=== PATIENT | female | born 1955 | race Hispanic/Latino ===

== ENCOUNTER → 2018-11-29 | Outpatient (CLI) | payer OTHER, BC ==
[~2018-11-29] MED LIST: AMLODIPINE BESYL5 MG PO; HYZAAR 100-251 EACH PO; Z.0.AMBIEN10 MG PO; Z.0.BENICAR HCT 401 PO; Z.0.CYMBALTA60 MG PO; Z.0.LORAZEPAM1 MG PO
--- NOTE | 2018-11-29 10:21 | Diagnostic Imaging Report ---
EXAM: Bone mineral density study 11/29/2018 7:39 AM INDICATION: ^MENOPAUSE COMPARISON: Previous DEXA none. Baseline DEXA none FINDINGS: Evaluation of the left hip and lumbar spine was performed. The study is technically adequate. The patient's fracture risk is compared to an age-matched control. The patient denies prior surgery/fracture of the spine, hips or forearm. LEFT HIP * Femoral neck bone mineral density: 0.760 gm/cm2, T-score is -1.0, Z-score is 0.5. * Total bone mineral density: 0.850 gm/cm2, T-score is -0.8, Z-score is 0.3. . LUMBAR SPINE * Total bone mineral density: 1.129 gm/cm2, T-score is 0.7, Z-score is 2.5. IMPRESSION: 1. LEFT HIP: Bone mineralization by WHO Classification is normal, the fracture risk is not increased. 2. LUMBAR SPINE: Bone mineralization by WHO Classification is normal, the fracture risk is not increased. <T score: NL = -1 or higher Osteopenia = -1 to -2.5 Osteoporosis = -2.5 or lower Z score: < - 2 concerning for path> Signed by: Dr. Adonis Peterson M.D. on 11/29/2018 10:18 AM
--- NOTE | 2018-11-29 10:32 | Diagnostic Imaging Report ---
EXAM: US ABDOMEN COMPLETE INDICATION: Right upper quadrant abdominal pain. COMPARISON: None TECHNIQUE: Transverse and longitudinal rodriguez scale and color doppler sonographic images of the upper abdomen were obtained. FINDINGS: LIVER 12.8 cm in the right midclavicular line. Normal echogenicity of the liver with normal contour, no masses. SPLEEN 7.7 cm in maximum diameter. Normal echogenicity, no masses. GALLBLADDER No gallbladder wall thickening, distension, stone, or pericholecystic fluid. Negative reported sonographic Green's sign. BILE DUCTS No intra nor extra-hepatic biliary dilation. Common bile duct measures 0.2 cm PANCREAS: Visualized portions are normal. RIGHT KIDNEY: 10.6 cm Echogenicity: Normal Collecting System: No hydronephrosis Stones: None Cyst/Mass: None LEFT KIDNEY: 10.9 cm Echogenicity: Normal Collecting System: No hydronephrosis Stones: None Cyst/Mass: No evidence of solid mass. There is a left sided parapelvic cyst. VESSELS: Aorta: Visualized portions are within normal size limits Inferior Vena Cava: Visualized portions are normal Main Portal Vein: 0.8 cm, normal size with hepatopetal flow. FREE FLUID: None IMPRESSION: No acute radiographic abnormality. Signed by: Dr. Moose Rueda MD on 11/29/2018 10:29 AM
== END ==
LOC: US 07:27
PROVIDERS: ATTEND Internal Medicine Gastroenterology
DX: Z12.31 Encounter for screening mammogram for malignant neoplasm of breast (principal); Z13.820 Encounter for screening for osteoporosis; Z78.0 Asymptomatic menopausal state; R10.11 Right upper quadrant pain
CPT/HCPCS: 76700; 77067; 77080

== ENCOUNTER → 2019-09-12 | Outpatient (CLI) | payer BC ==
--- NOTE | 2019-09-12 12:24 | Diagnostic Imaging Report ---
EXAMINATION: CHEST 2 VIEWS INDICATION: ^BRONCHITIS COMPARISON: None FINDINGS: PA and lateral views TUBES and LINES: None. LUNGS: Lungs are well inflated. Lungs are clear. There is no evidence of pneumonia or pulmonary edema. PLEURA: No pleural effusion or pneumothorax. HEART AND MEDIASTINUM: The cardiomediastinal silhouette is unremarkable. BONES AND SOFT TISSUES: No acute osseous lesion. Soft tissues are unremarkable. UPPER ABDOMEN: No free air under the diaphragm. IMPRESSION: No acute thoracic radiographic abnormality. Signed by: Santiago Barney MD on 09/12/2019 12:22 PM
== END ==
LOC: RAD 11:47
PROVIDERS: ATTEND Family Medicine
DX: J40 Bronchitis, not specified as acute or chronic (principal)
CPT/HCPCS: 71046

== ENCOUNTER → 2021-12-31 | Outpatient (CLI) | payer BC, MEDICARE | LOC: MAMMO 10:12 | PROVIDERS: ATTEND Family Medicine | DX: Z12.31 Encounter for screening mammogram for malignant neoplasm of breast (principal) | CPT/HCPCS: 77067 ==

== ENCOUNTER → 2022-01-21 | Outpatient (CLI) | payer BC, MEDICARE | LOC: MAMMO 10:12 | PROVIDERS: ATTEND Family Medicine | DX: N64.89 Other specified disorders of breast (principal) ==

== ENCOUNTER → 2024-06-05 | Outpatient (REF) | payer MEDICARE | LOC: MAMMO 09:22 | PROVIDERS: ATTEND Family Medicine | DX: Z12.31 Encounter for screening mammogram for malignant neoplasm of breast (principal) | CPT/HCPCS: 77067 ==